=== PATIENT | female | born 1955 | race African-American/Black ===

== ENCOUNTER 2016-06-24 17:24 | Inpatient (IN) ==
[2016-06-24] MEDS ORDERED: NS 1,000 ML IV ONE (17:32)
[2016-06-24] MEDS ORDERED: ZOFRAN IV ONE (17:32)
[2016-06-24 17:58] LABS: MANUAL DIFF NEEDED? NO
[2016-06-24 18:08] LABS: BASO% 0.1 % (0.0-0.8); EOS# 0.01 X1000 (0.0-0.7); EOS% 0.1 % (0.0-10.0); HEMATOCRIT 47.6 % (37.0-47.0); HEMOGLOBIN 15.9 g/dL (12.0-16.0); IMM GRAN# 0.02 X1000 (0.0-0.04); IMM GRAN% 0.2 % (0.0-0.5); LYMPH# 1.27 X1000 (1.2-3.4); LYMPH% 9.9 % (20.5-51.1); MCH 25.9 PG (27-31); MCHC 33.4 g/dL (33-37); MCV 77.4 FL (81-99); MONO# 1.22 X1000 (0.11-0.59); MONO% 9.5 % (1.7-9.3); MPV 10.3 FL (7.4-10.4); NEUT% 80.2 % (42.2-75.2); PLT 310 X1000 (130-400); RBC 6.15 XMIL (4.2-5.4)
[2016-06-24 18:16] LABS: AGAP 14; ALBUMIN 3.7 g/dL (3.5-5.0); ALKALINE PHOSPHATASE 63 U/L (32-104); BUN 25 mg/dL (8-22); CALCIUM 8.8 mg/dL (8.8-10.2); CHLORIDE 104 mmol/L (98-107); COSMO 280; GOT 18 U/L (10-30); GPT 33 U/L (10-36); LIPASE 31 U/L (13-60); MAGNESIUM 2.3 mg/dL (1.5-2.7); POTASSIUM 3.6 mmol/L (3.5-5.1); SODIUM 137 mmol/L (136-145); TCO2 19 mmol/L (25-35); TOTAL PROTEIN 7.5 g/dL (6.3-8.3)
[2016-06-24] MEDS ORDERED: SODIUM CHLORIDE 0.9% INJ ONE ×2 (18:55→20:42)
[2016-06-24] MEDS ORDERED: PHENERGAN IV ONE (18:55)
--- NOTE | 2016-06-24 20:12 | PROVIDER DOCUMENTATION ---
HPI-Abdominal Pain/GI Problem - General Chief Complaint: Nausea/Vomiting Stated Complaint: BLOOD SUGAR PROB Time Seen by Provider: 06/24/16 17:31 Source: patient, family Allergies/Adverse Reactions: Patient Allergies Allergy/AdvReac Type Severity Reaction Status Date / Time morphine AdvReac Mild Unknown Verified 06/15/15 21:16 Home Medications: Home Medication List Medication Instructions Recorded Confirmed Last Taken Type Aspirin [Aspir 81] 81 mg PO DAILY 01/04/12 06/15/15 06/15/15 07:00 History Calcium Carbonate [Calcium] 1,200 mg PO BID 01/04/12 06/15/15 06/15/15 07:00 History Cyanocobalamin (Vitamin B-12) 1,000 mcg SL DAILY 01/04/12 06/15/15 06/15/15 07: 00 History [Vitamin B-12] Ergoloid Mesylates 1 mg PO BID 01/04/12 06/15/15 06/15/15 07:00 History Magnesium Amino Acid Chelate 1.5 tab PO BID 01/04/12 06/15/15 06/15/15 07:00 History [Magnesium] [place]-3 Fatty Acids [Fish Oil] 1,200 mg PO BID 01/04/12 06/15/15 06/15/15 07:00 History Phenobarbital 45 mg PO BID 01/04/12 06/15/15 06/15/15 07:00 History Solifenacin Succinate [Vesicare] 5 mg PO DAILY 01/04/12 06/15/15 06/15/15 07:00 History PRAVAstatin [Pravachol] 10 mg PO DAILY 05/01/14 06/15/15 06/14/15 20:00 History Biotin [Nail-Ex] 5,000 mcg PO DAILY 06/15/14 06/15/15 06/15/15 07:00 History Esomeprazole [Nexium] 40 mg PO DAILY 06/15/14 06/15/15 06/15/15 07:00 History Evening [place] Oil 1,000 mg PO BID 06/15/14 06/15/15 06/15/15 07:00 History Ubidecarenone [Co Q-10] 200 mg PO DAILY 06/15/14 06/15/15 06/15/15 07:00 History Vitamin E 1,200 unit PO DAILY 06/15/14 06/15/15 06/15/15 07:00 History Ondansetron [Zofran] 4 mg PO Q6H PRN PRN #20 tablet 06/15/15 Unknown Rx - History of Present Illness-ABD Nature of Presenting Problems: This pt presents today c complaints of n/v X 24 hours. She reports that yesterday her blood sugar "dropped" so she ate some peanut butter and went and lied down. She states that when she work up she began vomiting. She has taken 3- 4 Zofran since that time but continues to have cyclical vomiting. No abdominal pains. No fever, chills. No other issues or complaints. Severity in ED: reports: moderate Onset/Duration: reports: 24 hours ago Timing: reports: still present Modifying Factors: improves with: eating, lying down (improves) Associated Symptoms: reports: fatigue, nausea, vomiting Last BM: this morning Dark Stools Present?: reports: none noticed Rectal Bleeding: reports: none Rectal Pain: reports: none Emesis Description: reports: clear Bruising or Bleeding Gums?: No Similar Symptoms Previously?: Yes Recently seen or treated by another doctor?: No Review of Systems - Adult - REVIEW OF SYSTEMS - ADULT Constitutional: reports: fatique. denies: chills, fever Eyes: reports: no symptoms reported. denies: discharge, dry eyes Ears, Nose, Mouth & Throat: reports: no symptoms reported. denies: ear discharge, ear pain Cardiovascular: reports: no symptoms reported. denies: chest pain, edema Respiratory: reports: no symptoms reported. denies: chronic cough, cough Gastrointestinal: reports: nausea, vomiting. denies: difficulty swallowing, frequent heartburn Genitourinary: reports: no symptoms reported. denies: dysuria, discharge Musculoskeletal: reports: no symptoms reported. denies: bone pain, back pain Integumentary: reports: no symptoms reported. denies: hives, hair loss Neurological: reports: no symptoms reported. denies: ataxia, dizziness/vertigo Psychiatric: reports: no symptoms reported. denies: anxiety, anti-depressant use Endocrine: reports: no symptoms reported Hematologic/Lymphatic: reports: no symptoms reported Allergic/Immunologic: reports: no symptoms reported All Other Systems: Reviewed and Negative Past History - Adult - PAST MEDICAL HISTORY-ADULT Review of Records: reports: Old Records Reviewed, Nursing Assessment Review, Medications Reviewed, Social history reviewed & non-contributory. Major Childhood Illnesses: reports: denies history Cardiovascular: reports: denies history Respiratory: reports: sleep apnea Gastrointestinal: reports: denies history Obstetrical/Gynecological: reports: denies history Genitourinary: reports: denies history Musculoskeletal: reports: denies history Neurological: reports: denies history Endocrine/Immune: reports: other (autoimmune disorder) Other Conditions: reports: denies history - PRIOR SURGERIES/PROCEDURES Surgical/Procedure History: reports: hysterectomy, orthopedic (extremity) - IMMUNIZATION STATUS Childhood Immunizations: See Nurse Assessment Flu Vaccine: See Nurse Assessment Physical Exam-General - PHYSICAL EXAM-ADULT Initial Vital Signs Reviewed: Yes - CONSTITUTIONAL General Appearance: alert, mild distress - EYES Eyes: PERRL/EOMI, pink conjunctivae - HEAD, EARS, NOSE, MOUTH & THROAT HENMT: normocephalic/atraumatic, moist mucous membranes, normal ENT inspection - NECK Neck: non-tender, full range of motion, supple, normal inspection - RESPIRATORY Respiratory: chest non-tender, lungs clear, normal breath sounds, no pleuratic chest pain, no respiratory distress, no accessory muscle use - CARDIOVASCULAR Cardiovascular: normal peripheral pulses, regular rate, rhythm - GASTROINTESTINAL (ABDOMEN) Abdominal Exam: normal bowel sounds, non tender, soft, no organomegaly, no pulsatile mass. negative: abdominal bruit, abnormal bowel sounds, distended, guarding, rigid, rebound, tenderness - MUSCULOSKELETAL Back Exam: normal inspection Extremity: normal range of motion, non-tender, normal inspection - SKIN Integumentary: normal color, normal turgor, warm/dry - NEUROLOGIC Neurologic: grossly normal, no motor/sensory deficits - PSYCHIATRIC Psych/Mental Status: normal mood/affect, normal thought content, normal thought process, oriented x 3 Progress - PLAN OF CARE/RESULTS Progress/Plan/Lab Results: Laboratory Tests 06/24/16 06/24/16 17:50 17:50 WBC 12.87 H RBC 6.15 H Hgb 15.9 Hct 47.6 H MCV 77.4 L MCH 25.9 L MCHC 33.4 RDW Std Deviation 15.7 H Plt Count 310 MPV 10.3 Immature Gran % (Auto) 0.2 Neut % (Auto) 80.2 H Lymph % (Auto) 9.9 L [place] % (Auto) 9.5 H Eos % (Auto) 0.1 Baso % (Auto) 0.1 Immature Gran # (Auto) 0.02 Neut # (Auto) 10.34 H Lymph # (Auto) 1.27 [place] # (Auto) 1.22 H Eos # (Auto) 0.01 Baso # (Auto) 0.01 Sodium 137 Potassium 3.6 Chloride 104 Carbon Dioxide 19 L Anion Gap 14 BUN 25 H Creatinine 0.8 Estimated GFR/1.73 m2 > 60 BUN/Creatinine Ratio 31 Glucose 135 H Calculated Osmolality 280 Calcium 8.8 Magnesium 2.3 Total Bilirubin 0.30 AST 18 ALT 33 Alkaline Phosphatase 63 Total Protein 7.5 Albumin 3.7 Globulin 4.0 Albumin/Globulin Ratio 1.0 Lipase 31 Orders Category Date Time Status Saline Loc NOW Care 06/24/16 17:32 Active CBC WITH DIFF [HEME] Stat Lab 06/24/16 17:50 Completed COMPREHENSIVE METABOLIC PANEL [CHEM] Stat Lab 06/24/16 17:50 Completed LIPASE [CHEM] Stat Lab 06/24/16 17:50 Completed MAGNESIUM [CHEM] Stat Lab 06/24/16 17:[address] W/POSS RFLX CULT [URINALYSIS] Stat Lab 06/24/16 17:32 Uncollected 0.9% Sodium Chloride Inj [Ns] 1,000 ml Med 06/24/16 17:32 Discontinued IV 999 mls/hr Ondansetron [Zofran] Med 06/24/16 17:32 Discontinued 4 mg IV NOW ONE Promethazine [Phenergan] Med 06/24/16 18:55 Discontinued 12.5 mg IV NOW ONE Sodium Chloride 0.9% Med 06/24/16 18:55 Discontinued 10 ml INJ NOW ONE Vital Signs Temp Pulse Resp BP Pulse Ox 06/24/16 17:26 98.9 F 112 H 22 151/75 99 morphine Adverse Reaction (Mild, Verified 06/15/15 21:16) Unknown I don't like the tunnel effect; dilaudid works better Aspirin [Aspir 81] 81 mg PO DAILY 01/04/12 Calcium Carbonate [Calcium] 1,200 mg PO BID 01/04/12 Cyanocobalamin (Vitamin B-12) [Vitamin B-12] 1,000 mcg SL DAILY 01/04/12 Ergoloid Mesylates 1 mg PO BID 01/04/12 Magnesium Amino Acid Chelate [Magnesium] 1.5 tab PO BID 01/04/12 [place]-3 Fatty Acids [Fish Oil] 1,200 mg PO BID 01/04/12 Phenobarbital 45 mg PO BID 01/04/12 Solifenacin Succinate [Vesicare] 5 mg PO DAILY 01/04/12 PRAVAstatin [Pravachol] 10 mg PO DAILY 05/01/14 Biotin [Nail-Ex] 5,000 mcg PO DAILY 06/15/14 Esomeprazole [Nexium] 40 mg PO DAILY 06/15/14 Evening [place] Oil 1,000 mg PO BID 06/15/14 Ubidecarenone [Co Q-10] 200 mg PO DAILY 06/15/14 Vitamin E 1,200 unit PO DAILY 06/15/14 Ondansetron [Zofran] 4 mg PO Q6H PRN PRN #20 tablet 06/15/15 Laboratory 06/24/16 06/24/16 17:50 17:50 WBC 12.87 H RBC 6.15 H Hgb 15.9 Hct 47.6 H MCV 77.4 L MCH 25.9 L MCHC 33.4 RDW Std Deviation 15.7 H Plt Count 310 MPV 10.3 Immature Gran % (Auto) 0.2 Neut % (Auto) 80.2 H Lymph % (Auto) 9.9 L [place] % (Auto) 9.5 H Eos % (Auto) 0.1 Baso % (Auto) 0.1 Immature Gran # (Auto) 0.02 Neut # (Auto) 10.34 H Lymph # (Auto) 1.27 [place] # (Auto) 1.22 H Eos # (Auto) 0.01 Baso # (Auto) 0.01 Sodium 137 Potassium 3.6 Chloride 104 Carbon Dioxide 19 L Anion Gap 14 BUN 25 H Creatinine 0.8 Estimated GFR/1.73 m2 > 60 BUN/Creatinine Ratio 31 Glucose 135 H Calculated Osmolality 280 Calcium 8.8 Magnesium 2.3 Total Bilirubin 0.30 AST 18 ALT 33 Alkaline Phosphatase 63 Total Protein 7.5 Albumin 3.7 Globulin 4.0 Albumin/Globulin Ratio 1.0 Lipase 31 Pt has continued to have cyclical vomiting after medications. Will admit for intractable n/v. She is a pt of Dr. Bar so I will transfer to [facility]. - CONSULTS/PCP/HOSPITALIST Notification #1 *Consult/PCP/Hospitalist*: Dr. Calderon Time Discussed: 20:40 Consult Disposition: Admit (Will admit for Dr. Bar's Service) Departure - Departure Time of Disposition Order: 20:11 DIAGNOSIS: Intractable vomiting with nausea Qualifiers: Vomiting type: cyclical vomiting Qualified Code(s): G43.A1 - Cyclical vomiting , intractable Disposition: ADMITTED INPATIENT 09 Certified Medical Emergency: Emergent Condition: Stable Referrals: Bj Bar MD [Primary Care Provider] - Attestation - Physician/ MANASA Attestation Patient care was provided by Advanced Practice Provider:: Yes Advanced Practice Provider:: Rafael Duque Advanced Practice Provider documentation review:: The Mid-level provider documentation, treatment plan and medical decision making was reviewed by the physician who agrees with all treatment and medical decision making by the MLP.
[2016-06-24] MEDS ORDERED: BENADRYL IV ONE (20:23)
[2016-06-24] MEDS ORDERED: REGLAN IV ONE (20:23)
[2016-06-24] MEDS ORDERED: MORPHINE IV PRN (20:41)
[2016-06-24] MEDS ORDERED: ZOFRAN IV PRN (20:41)
[2016-06-24] MEDS ORDERED: PROTONIX IV ONE (20:42)
[2016-06-24 20:45] LABS: BE -1.8 mmoll (-3.0-3.0); BLOOD TYPE ARTERIAL; DRAW SITE L BRACHIAL; METHB 1.1 % (0.0-1.5); PCO2(98.6) 35 mmHg (35-45); PO2(98.6) 65 mmHg (60-100); SAMPLE BLOOD; SAO2 94.5 % (95.0-100.0); THB 15.6 g/dL (11.5-17.4); pH(98.6) 7.41 (7.35-7.45)
[2016-06-24 20:47] LABS: ALLEN TEST NO; MODALITY ROOM AIR
[2016-06-24 21:50] LABS: URINE CULTURE PL NEEDED? NO; URINE SOURCE CLEAN CATCH
[2016-06-24 21:53] LABS: BILIRUBIN URINE NEGATIVE (NEGATIVE); BLOOD URINE 3+ (NEGATIVE); CLARITY CLEAR (CLEAR); COLOR YELLOW; GLUCOSE URINE NEGATIVE (NEGATIVE); LEUKOCYTES URINE NEGATIVE (NEGATIVE); NITRITE URINE NEGATIVE (NEGATIVE); PROTEIN URINE NEGATIVE (NEGATIVE); UROBILINOGEN URINE NORMAL
[2016-06-24 22:01] LABS: URINE CAST NONE SEEN /LPF; URINE CRYSTAL NONE SEEN /HPF; URINE EPITHELIAL CELLS <10 /HPF (<10); URINE WBC <10 /HPF (<10)
[2016-06-24] MEDS ORDERED: SODIUM CHLORIDE 0.9% INJ PRN (22:30)
[2016-06-24 22:57] LABS: HEMOGLOBIN A1C 5.4 % (4.8-6.0)
[2016-06-24] MEDS: NS 1,000 ML IV SCH (23:31)
[2016-06-24] MEDS ORDERED: COMPAZINE IV ONE (23:39)
[2016-06-24] MEDS ORDERED: DEMEROL IV PRN (23:50)
[2016-06-25] MEDS: PHENERGAN IV PRN (00:09)
--- NOTE | 2016-06-25 06:16 | HISTORY AND PHYSICAL ---
PRIMARY CARE PROVIDER: Dr. Bar. CHIEF COMPLAINT: Nausea, vomiting for the past 24 hours with blood sugar complaint. HISTORY OF PRESENT ILLNESS: This is a 61-year-old female who suffers from obesity as well as dysautonomia and hypoglycemia reported by the patient. Hemoglobin A1c was checked which was 5.4, I believe, and her blood glucose was 135 in the emergency room. However, she has complained of cyclic nausea and vomiting which was unable to be stopped in the emergency room. Laboratory data was grossly normal. She had a mildly elevated white blood cell count of 12.84 and her hemoglobin and hematocrit were noted to be mildly elevated as well as her BUN being at 25. So she is likely mildly dehydrated. She will be admitted to the medical floor at [facility] for further evaluation and treatment. PAST MEDICAL HISTORY: 1. Dysautonomia. 2. Hypoglycemia. 3. Ectopic x2. 4. Obesity. PREVIOUS SURGICAL HISTORY: 1. Knee scope. 2. Hysterectomy. 3. Cholecystectomy. FAMILY HISTORY: Positive for diabetes and coronary artery disease. ALLERGIES: To morphine which is more of a sensitivity according to the patient. She just states that she feels disoriented when she takes it. SOCIAL HISTORY: She is a nonsmoker. Does not drink or use illicit drugs. She is a retired nurse in outpatient surgery. She lives at home with her . HOME MEDICATIONS: A list has not been reconciled in the computer. An order was placed for nursing to reconcile home medications. They will be restarted when appropriate. REVIEW OF SYSTEMS: Fourteen point review of systems conducted with the patient. Denies other complaints except for listed above in the HPI. PHYSICAL EXAMINATION: VITAL SIGNS: Temp 100 degrees, pulse 106, respirations 20, blood pressure 143/80, oxygen saturation 99% on room air. GENERAL: Obese female lying in the medical floor bed. She is mildly retching in a mild amount of distress. HEENT: Head is atraumatic, normocephalic. Pupils equal, round, reactive to light. Extraocular eye movement intact. Sclerae is anicteric. Conjunctivae is pink. Oral mucosa is dry. NECK: Supple. No JVD. No thyromegaly. Trachea is midline. CARDIAC: Regular rhythm. Sinus tachycardia. S1-S2 appreciated. No murmurs, gallops, rubs. LUNGS: Clear to auscultation bilaterally. No rhonchi, wheezes or rales. Symmetrical rise and fall with respirations. ABDOMEN: Protuberant, soft, nondistended. Diffusely tender to palpation. Bowel sounds hyperactive all 4 quadrants. EXTREMITIES: Trace bilateral lower extremity nonpitting edema. No clubbing, cyanosis. 2+ pedal pulses bilaterally. NEUROLOGICAL: Alert and oriented x4. Very pleasant. No focal deficits noted. ASSESSMENT AND PLAN: 1. Intractable nausea, vomiting. Possibly viral and the illnesses has only lasted for the past 24 hours. We will treat with Phenergan, Zofran. Have added an IV dose of Compazine x1 time if Phenergan and Zofran fail to control nausea and vomiting. 2. Fluid volume depletion. Normal saline bolusing x 2 L was completed in the emergency room. We will continue normal saline at 75 mL an hour. Recheck laboratory data in a.m. 3. History of reactive hypoglycemia. The patient takes phenobarbital which was started by her assistant nurse manager in [place] to help with hypoglycemia. An order was placed in the computer to let the patient take her home dose of phenobarbital while nursing works on reconciling home medications. 4. History of dysautonomia, aware. 5. Abdominal pain. I have ordered a flat and upright abdominal scan, additional orders and plan. The patient as noted above was admitted. She is a patient of Dr. Bar. We will 2 p.r.n. doses of IV pain medication to help overnight time with abdominal pain so she can get some rest and we will advance diet as tolerated. Further recommendations per patient clinical course. Dictated by TYRON Almaguer for Janusz Calderon MD
[2016-06-25 06:32] LABS: MANUAL DIFF NEEDED? NO
[2016-06-25 06:37] LABS: BASO% 0.2 % (0.0-0.8); EOS# 0.01 X1000 (0.0-0.7); EOS% 0.1 % (0.0-10.0); HEMATOCRIT 44.7 % (37.0-47.0); HEMOGLOBIN 14.7 g/dL (12.0-16.0); IMM GRAN# 0.03 X1000 (0.0-0.04); IMM GRAN% 0.2 % (0.0-0.5); LYMPH# 1.75 X1000 (1.2-3.4); LYMPH% 13.2 % (20.5-51.1); MCH 25.9 PG (27-31); MCHC 32.9 g/dL (33-37); MCV 78.7 FL (81-99); MONO# 1.36 X1000 (0.11-0.59); MONO% 10.3 % (1.7-9.3); MPV 10.5 FL (7.4-10.4); PLT 310 X1000 (130-400); RBC 5.68 XMIL (4.2-5.4)
[2016-06-25 07:00] LABS: AGAP 15; BUN 21 mg/dL (8-22); CHLORIDE 109 mmol/L (98-107); COSMO 292; SODIUM 145 mmol/L (136-145); TCO2 21 mmol/L (25-35)
--- NOTE | 2016-06-25 07:24 | Diag Imaging Result Document ---
PROCEDURE NAME: ABDOMEN FLAT/UPRIGHT - 06/24/2016 PORTABLE UPRIGHT AND SUPINE ABDOMEN, TWO VIEWS: FINDINGS: No free air beneath the diaphragm. The bowel loops are not dilated. No organomegaly. No abnormal abdominal or pelvic calcifications. IMPRESSION: Negative exam.
[2016-06-25] MEDS: PROTONIX IV SCH (09:08)
[2016-06-25] MEDS: SODIUM CHLORIDE 0.9% INJ SCH (09:08)
[2016-06-25] MEDS ORDERED: ZOFRAN PO PRN (11:41)
[2016-06-25] MEDS ORDERED: DILAUDID IV PRN (11:46)
[2016-06-25] MEDS: NS 1,000 ML IV SCH (13:02)
--- NOTE | 2016-06-25 14:20 | PROGRESS NOTE ---
DATE: 06/25/2016 SUBJECTIVE: Patient still complains of some nausea after she ate some broth she said. She does relate she had some diarrhea with her vomiting yesterday. She is unaware of anyone else being sick in the home or anyone that she has been around being sick. Patient does have a long history of hypoglycemia and insulin resistance and has been followed by Dr. Gary, farm reporter in [place], and is on metformin ER and phenobarbital by him. OBJECTIVE: Vital signs: T-max 100 degrees. At 4 a.m. it was 99.9 and now it is 98.3. Pulse is 95, blood pressure 127/77, O2 saturation on room air 94 to 99%. General: Non-ill appearing black female. CV: RRR without murmur. Lungs: CTA. Abdomen: Protuberant, soft, nontender. No mass or organomegaly. Extremities: No edema. LABS: Reviewed from last evening in toto. Abdominal x-ray was negative. ASSESSMENT: 1. Nausea, vomiting, and diarrhea, rule out AGE. 2. Mild pyuria. 3. Fever, low grade. 4. Long history of insulin resistance and reactive hypoglycemia. 5. Dysautonomia. 6. Obesity. PLAN: At this time continue IV hydration, antiemetics as required for nausea and vomiting. Check urine culture on urine obtained in the lab. Resume Neurontin, Paxil, phenobarbital while holding her other medicines currently as her stomach recovers. Repeat labs in the morning to include CBC and BMP. Change from Demerol and Dilaudid for pain control.
[2016-06-25] MEDS: NEURONTIN PO SCH ×2 (16:35→17:41)
[2016-06-25] MEDS: PHENOBARBITAL PO SCH (20:27)
[2016-06-26] MEDS: NS 1,000 ML IV SCH (02:05)
[2016-06-26 07:23] LABS: MANUAL DIFF NEEDED? NO
[2016-06-26 07:34] LABS: BASO% 0.1 % (0.0-0.8); EOS# 0.11 X1000 (0.0-0.7); EOS% 1.3 % (0.0-10.0); HEMATOCRIT 41.6 % (37.0-47.0); HEMOGLOBIN 13.5 g/dL (12.0-16.0); IMM GRAN# 0.02 X1000 (0.0-0.04); IMM GRAN% 0.2 % (0.0-0.5); LYMPH# 2.35 X1000 (1.2-3.4); LYMPH% 27.9 % (20.5-51.1); MCH 25.9 PG (27-31); MCHC 32.5 g/dL (33-37); MCV 79.7 FL (81-99); MONO# 1.14 X1000 (0.11-0.59); MONO% 13.6 % (1.7-9.3); MPV 10.4 FL (7.4-10.4); NEUT% 56.9 % (42.2-75.2); PLT 261 X1000 (130-400); RBC 5.22 XMIL (4.2-5.4)
[2016-06-26 07:52] LABS: AGAP 12; BUN 12 mg/dL (8-22); CALCIUM 7.9 mg/dL (8.8-10.2); CHLORIDE 110 mmol/L (98-107); COSMO 287; POTASSIUM 3.9 mmol/L (3.5-5.1); SODIUM 144 mmol/L (136-145); TCO2 22 mmol/L (25-35)
[2016-06-26] MEDS: PROTONIX IV SCH (09:33)
[2016-06-26] MEDS: NEURONTIN PO SCH ×3 (09:34→19:02)
[2016-06-26] MEDS: PHENOBARBITAL PO SCH ×2 (09:35→22:36)
[2016-06-26] MEDS ORDERED: SODIUM CHLORIDE 0.9% 10 ML ONE (15:47)
[2016-06-26] MEDS: PHENERGAN IV PRN (15:54)
[2016-06-26] MEDS: PAXIL PO SCH (22:35)
[2016-06-27] MEDS: NEURONTIN PO SCH ×3 (08:48→17:51)
[2016-06-27] MEDS: PHENOBARBITAL PO SCH ×2 (08:49→21:49)
[2016-06-27] MEDS: PROTONIX IV SCH (08:49)
[2016-06-27] MEDS: SODIUM CHLORIDE 0.9% INJ SCH (08:50)
[2016-06-27 09:56] LABS: HEMOGLOBIN A1C 5.6 % (4.8-6.0)
[2016-06-27] MEDS: PAXIL PO SCH (10:52)
[2016-06-27] MEDS ORDERED: PAXIL PO SCH (21:00)
[2016-06-28] MEDS ORDERED: PNEUMOVAX 23 IM ONE (08:29)
[2016-06-28] MEDS: PHENOBARBITAL PO SCH (08:42)
[2016-06-28] MEDS: NEURONTIN PO SCH (08:42)
[2016-06-28] MEDS: PROTONIX IV SCH (08:42)
[2016-06-28] MEDS: SODIUM CHLORIDE 0.9% INJ SCH (08:42)
[2016-06-28 08:57] VITALS: BP 104/69
--- NOTE | 2016-06-29 21:53 | DISCHARGE SUMMARY ---
ADMISSION DATE: 06/24/2016 DISCHARGE DATE: 06/28/2016 DISCHARGING DIAGNOSIS: Gastroenteritis with dehydration. SECONDARY DIAGNOSES: 1. Dysautonomia. 2. Type 2 diabetes. 3. Dysmetabolic syndrome. 4. Overactive bladder. 5. Acid reflux disease. 6. Hyperlipidemia. 7. Diabetic neuropathy. 8. Chronic migraine headaches. BRIEF HISTORY: Please see the H and P that was done by hospitalist. In brief, she is a 61-year- old pleasant female, used to be a nurse at [employer]. Used to see Dr. Gary and Dr. Mckeon. Recently came to our practice with the above symptoms. Patient came here with intractable nausea, vomiting, diarrhea. She also is dehydrated. Patient was given symptomatic treatment with IV fluids, IV Compazine. Her symptoms were slowly improving. Followup stool studies were negative for C. difficile. However, heme-positive stools. Patient had colonoscopy done by Dr. Sanz in 2011. She is due for colonoscopy in June of this year. She is also exhibiting dysautonomia, taking phenobarbital. The patient has insulin resistance with high insulin C-peptide levels. She did not have any evidence of hypoglycemia. LABORATORIES: CBC: White cell count 8.4, hematocrit 41, platelets 261,000. ABG pH is 7.41, pCO2 35, PO2 65, bicarb on room air. SMA 7, sodium 144, potassium 3.9, chloride 110, BUN 12, creatinine 0.7, glucose 106, A1c 5.6. C-peptide 11.9. Liver function tests were normal. Lipase is normal. Urinalysis is negative. Acetone is negative. Stool cultures were negative except Hemoccult positive. Urine cultures mixed [place]. DISCHARGE INSTRUCTIONS: 1. Pneumococcal vaccine 06/28/2016. 2. Follow up with Dr. Sanz for colonoscopy. 3. Vitamin B12 1000 mcg daily, fish oil 1200 mg p.o. b.i.d., calcium 1200 mg p.o. b.i.d., phenobarbital 45 mg p.o. b.i.d., aspirin 81 mg daily, pravastatin 10 mg daily, Zofran as needed for nausea, Paxil 10 mg daily, Neurontin 100 mg p.o. t.i.d., Detrol LA 4 mg daily, metformin 500 mg p.o. b.i.d., niacin 500 mg daily, magnesium 500 mg p.o. b.i.d. 4. Follow up in my office next week as well as Dr. Sanz.
== END 2016-06-28 09:58 | disposition home or self-care (01) | DRG 641 ==
LOC: P.ED 17:24 → 3N 21:46
PROVIDERS: ADMIT Internal Medicine; ATTEND Internal Medicine
DX: E86.0 Dehydration (principal); K52.9 Noninfective gastroenteritis and colitis, unspecified; E88.81 Metabolic syndrome and other insulin resistance; N39.0 Urinary tract infection, site not specified; G90.1 Familial dysautonomia [Riley-Day]; E66.9 Obesity, unspecified; Z23 Encounter for immunization; Z79.899 Other long term (current) drug therapy; Z79.84 Long term (current) use of oral hypoglycemic drugs; Z68.39 Body mass index [BMI] 39.0-39.9, adult; Z82.49 Family history of ischemic heart disease and other diseases of the circulatory system; Z83.3 Family history of diabetes mellitus
CPT/HCPCS: 74020; 80048; 80053; 81001; 82009; 82270; 82805; 82948; 83036; 83690; 83735; 84681; 85025; 87045; 87046; 87088; 87324; 89055; 90732; 96361; 96374; 96375; C9113; J1200; J2405; J2550; J2765; J7030; S0164